=== PATIENT | female | born 2000 | race Caucasian/White ===

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

== ENCOUNTER 2019-03-27 20:40 | Emergency (ER) | payer OTHER | END 2019-03-27 23:35 | disposition home or self-care (01) | LOC: FTE 23:35 | DX: M94.0 Chondrocostal junction syndrome [Tietze] (principal); Z73.3 Stress, not elsewhere classified | CPT/HCPCS: 71045; 81025; 93005; 99284-25 ==